=== PATIENT | female | born 1975 | race Caucasian/White ===

== ENCOUNTER 2017-05-25 12:26 | Emergency (ER) | payer BC, OTHER ==
[2017-05-25 15:30] VITALS: BP 143/86
--- NOTE | 2017-05-25 15:34 | UC ---
Throat Pain/Nasal Popeye HPI - HPI Summary HPI Summary: frontal headache, nonprod cough, earache - both ears, irritated throat from coughing but doesnt hurt to swallow for 5 days now - ibuprofen helps a little with h/a but not sinus congestion - History of Current Complaint Chief Complaint: UCRespiratory Stated Complaint: SINUS Time Seen by Provider: 05/25/17 15:28 Hx Last Menstrual Period: 05/23/17 Onset/Duration: Lasting Days Severity: Moderate Pain Intensity: 6 Cough: Nonproductive Associated Signs & Symptoms: Positive: Sinus Discomfort Related History: Seasonal Allergies - Epiglottits Risk Factors Epiglottis Risk Factors: Negative - Allergies/Home Medications Allergies/Adverse Reactions: Allergies Allergy/AdvReac Type Severity Reaction Status Date / Time No Known Allergies Allergy Verified 05/25/17 15:30 Home Medications: Home Medications Loratadine [Claritin 10 MG CAP] 10 mg PO DAILY 05/25/17 [History Confirmed 05/25] PMH/Surg Hx/FS Hx/Imm Hx Previously Healthy: Yes - Surgical History Surgical History: None Surgery Procedure, Year, and Place: LUMPECTOMY RT BREAST 10/08/12 , [facility]ONSILLECTOMY - [facility]. WISDOM TEETH - 1996 [facility] - Family History Known Family History: Positive: Hypertension - Social History Alcohol Use: Occasionally Substance Use Type: None Smoking Status (MU): Never Smoked Tobacco Review of Systems Constitutional: Negative Skin: Negative Eyes: Negative ENT: Sore Throat, Ear Ache, Nasal Discharge, Sinus Congestion Respiratory: Cough - nonprod Cardiovascular: Negative Gastrointestinal: Negative Genitourinary: Negative Musculoskeletal: Negative Neurological: Negative Psychological: Negative Is Patient Immunocompromised?: No All Other Systems Reviewed And Are Negative: Yes Physical Exam Triage Information Reviewed: Yes Appearance: Ill-Appearing Vital Signs: Initial Vital Signs Temp 99.1 F 05/25/17 15:25 Pulse 57 05/25/17 15:25 Resp 16 05/25/17 15:25 BP 143/86 05/25/17 15:25 Pulse Ox 100 05/25/17 15:25 Eye Exam: Normal ENT: Positive: Pharyngeal erythema, Nasal congestion, TM bulging - yaron, Sinus tenderness Respiratory Exam: Normal Cardiovascular Exam: Normal Neurological Exam: Normal Psychological Exam: Normal Throat Pain/Nasal Course/Dx - Course Course Of Treatment: take abx with food to reduce gi upset - has taken amoxicillin before. continue drinking lots of water daily while on abx to prevent dehydration. ibuprofen 600mg po every 6 hours prn pain/fever. f/u if symptoms not resolving - Differential Dx/Diagnosis Differential Diagnosis/HQI/PQRI: Laryngitis, Pharyngitis Provider Diagnoses: sinusitis Discharge - Discharge Plan Condition: Stable Disposition: HOME Prescriptions: Amoxicillin PO (*) [Amoxicillin 875 MG (*)] 875 mg PO BID 10 Days #20 tab Patient Education Materials: Sinusitis (ED) Referrals: Cristian Vega MD [Primary Care Provider] - 1 Week
== END 2017-05-25 15:57 | disposition home or self-care (01) ==
LOC: UCCORT 12:26
DX: J32.9 Chronic sinusitis, unspecified (principal)
CPT/HCPCS: 99212; G0463